=== PATIENT | male | born 1970 | race Caucasian/White ===

== ENCOUNTER 2021-10-02 11:13 | Inpatient (IN) | payer OTHER ==
[2021-10-02] MEDS ORDERED: SODIUM CHLORIDE 0.9% 500 ML INFUS.BAG IV ONE (11:44)
[2021-10-02] MEDS ORDERED: ONDANSETRON 4 MG/2 ML VIAL IVPB ONE (11:50)
[2021-10-02] MEDS ORDERED: LACTATED RINGERS SOLUTION 1000 ML INFUS.BAG IV ONE ×2 (11:59→15:06)
[2021-10-02] MEDS ORDERED: ONDANSETRON 4 MG/2 ML VIAL ONE (12:08)
[2021-10-02] MEDS ORDERED: ACETAMINOPHEN 1000 MG/100 ML BAG IVPB ONE (12:09)
[2021-10-02 12:16] LABS: VENOUS BASE EXCESS -2.1 mmol/L (-2-2); VENOUS PCO2 47.3 mmHg (38-52); VENOUS PH 7.327 (7.310-7.410)
[2021-10-02 12:18] LABS: BASO % 2.2 % (0-2.0); EOS % 0.9 % (0-4.5); HEMATOCRIT 38.2 % (35.4-49); HEMOGLOBIN 13.3 GM/dL (11.7-16.9); LYMPH % 13.8 % (8-40); MCH 30.9 pg (25.7-33.7); MCHC 34.7 g/dl (32.0-35.9); MEAN CELL VOLUME 88.9 fl (80-96); MEAN PLT VOLUME 10.1 fl (7.5-11.1); MONO % 3.7 % (3.8-10.2); NEUT % 79.4 % (42.8-82.8); PLATELET COUNT 213 10^3/uL (134-434); RBC 4.29 M/mm3 (4.00-5.60); RDW 13.4 % (11.9-15.9); WHITE BLOOD COUNT 6.5 K/mm3 (4.0-10.0)
[2021-10-02 12:23] LABS: EPI CELLS 1 /uL (0-25.1); HYALINE CASTS 0 /uL (0-3.1); PH,URINE 5.5 (5.0-8.0); URINE APPEARANCE CLEAR; URINE BACTERIA 9 /uL (0-1359); URINE BILIRUBIN NEGATIVE (NEGATIVE); URINE COLOR YELLOW; URINE GLUCOSE (UA) 3+ (NEGATIVE); URINE KETONE 1+ (NEGATIVE); URINE LEUK ESTERASE NEGATIVE (NEGATIVE); URINE NITRITE NEGATIVE (NEGATIVE); URINE PROTEIN 1+ (NEGATIVE); URINE RBC 5 /uL (0-23.9); URINE UROBILINOGEN 0.2 mg/dL (0.2-1.0); URINE WBC 1 /uL (0-25.8)
[2021-10-02] MEDS ORDERED: ACETAMINOPHEN INJECTION 100 ML IVPB ONE (12:24)
[2021-10-02 12:25] LABS: INR 1.07 (0.83-1.09); PROTHROMBIN TIME (PATIENT) 12.3 SEC (9.7-13.0)
[2021-10-02 12:28] LABS: ACTIVATED PTT 29.2 SECONDS (25.2-36.5)
[2021-10-02 12:36] LABS: CHLORIDE 90 mmol/L (98-107); SODIUM 129 mmol/L (136-145)
[2021-10-02 12:37] LABS: ALBUMIN 3.5 g/dl (3.4-5.0); ANION GAP 14 MMOL/L (8-16); CALCIUM 9.1 mg/dL (8.5-10.1); CO2 25 mmol/L (21-32)
[2021-10-02 12:38] LABS: BLOOD UREA NITROGEN 37.9 mg/dL (7-18); LIPASE 570 U/L (73-393)
[2021-10-02 12:40] LABS: CREATININE 1.6 mg/dL (0.55-1.3); SGOT/AST 23 U/L (15-37)
[2021-10-02 12:41] LABS: BILIRUBIN,TOTAL 0.5 mg/dL (0.2-1); SGPT/ALT 39 U/L (13-61)
[2021-10-02 12:42] LABS: TOT PROT 6.8 g/dl (6.4-8.2)
[2021-10-02 12:43] LABS: ALK PHOS 126 U/L (45-117)
[2021-10-02 15:04] LABS: CHLORIDE 95 mmol/L (98-107); SODIUM 131 mmol/L (136-145)
[2021-10-02 15:08] LABS: ANION GAP 12 MMOL/L (8-16); BLOOD UREA NITROGEN 32.9 mg/dL (7-18); CALCIUM 8.2 mg/dL (8.5-10.1); CO2 23 mmol/L (21-32)
[2021-10-02 15:11] LABS: GLUCOSE,RANDOM 811 mg/dL (74-106)
[2021-10-02 15:11] LABS: CREATININE 1.3 mg/dL (0.55-1.3); TRIGLYCERIDES 367 mg/dL (0-150)
[2021-10-02] MEDS ORDERED: INSULIN REGULAR HUMAN 100 UNITS/ML *VIAL SQ ONE (15:16)
[2021-10-02 15:17] LABS: GLUCOSE,RANDOM 630 mg/dL (74-106)
[2021-10-02 15:47] LABS: N-TERMINAL BNP 313.91 pg/ml (5-125)
[2021-10-02] MEDS ORDERED: amLODIPine BESYLATE 5 MG TABLET (FP) PO ONE ×2 (15:57→18:35)
[2021-10-02] MEDS ORDERED: amLODIPine BESYLATE 5 MG TABLET (FP) ONE ×2 (15:57→18:43)
[2021-10-02] MEDS ORDERED: CALCIUM GLUCONATE 10% - 1,000 MG/10 ML VIAL IVPUSH ONE (16:59)
[2021-10-02] MEDS ORDERED: CALCIUM GLUCONATE 10% - 1,000 MG/10 ML VIAL ONE (17:22)
[2021-10-02] MEDS: INSULIN SLIDING SCALE (NOVOLOG) 1 VIAL SQ SCH (17:37)
[2021-10-02] MEDS ORDERED: INSULIN REGULAR HUMAN 100 UNITS/ML *VIAL IVPUSH ONE (18:04)
[2021-10-02 19:10] LABS: CALCIUM 9.1 mg/dL (8.5-10.1)
[2021-10-02 19:11] LABS: BLOOD UREA NITROGEN 27.2 mg/dL (7-18)
[2021-10-02 19:14] LABS: CREATININE 1.2 mg/dL (0.55-1.3)
[2021-10-02] MEDS ORDERED: ONDANSETRON 4 MG/2 ML VIAL IVPUSH PRN (19:52)
[2021-10-02] MEDS: HEPARIN NA (PORCINE) 5,000 UNITS/ML 1ML VIAL SQ SCH (21:12)
[2021-10-02] MEDS ORDERED: HEPARIN NA (PORCINE) 5,000 UNITS/ML 1ML VIAL ONE (21:13)
[2021-10-02 21:30] LABS: BLOOD UREA NITROGEN 29.7 mg/dL (7-18); CALCIUM 8.6 mg/dL (8.5-10.1)
[2021-10-02 21:33] LABS: CREATININE 1.4 mg/dL (0.55-1.3)
[2021-10-03] MEDS: INSULIN SLIDING SCALE (NOVOLOG) 1 VIAL SQ SCH ×6 (00:10→23:49)
[2021-10-03 01:43] VITALS: BMI 22.2
[2021-10-03] MEDS: HEPARIN NA (PORCINE) 5,000 UNITS/ML 1ML VIAL SQ SCH ×3 (06:02→21:46)
[2021-10-03 07:30] LABS: BASO % 2.1 % (0-2.0); EOS % 4.5 % (0-4.5); HEMATOCRIT 29.6 % (35.4-49); HEMOGLOBIN 10.6 GM/dL (11.7-16.9); LYMPH % 37.1 % (8-40); MCH 30.8 pg (25.7-33.7); MEAN CELL VOLUME 85.5 fl (80-96); MEAN PLT VOLUME 10.3 fl (7.5-11.1); MONO % 5.1 % (3.8-10.2); NEUT % 51.2 % (42.8-82.8); PLATELET COUNT 180 10^3/uL (134-434); RBC 3.46 M/mm3 (4.00-5.60); RDW 13.5 % (11.9-15.9); WHITE BLOOD COUNT 5.7 K/mm3 (4.0-10.0)
[2021-10-03 07:39] LABS: CALCIUM 8.1 mg/dL (8.5-10.1)
[2021-10-03 07:42] LABS: BLOOD UREA NITROGEN 24.2 mg/dL (7-18); MAGNESIUM 2.1 mg/dL (1.8-2.4)
[2021-10-03 07:44] LABS: PHOSPHOROUS 2.6 mg/dL (2.5-4.9)
[2021-10-03 07:46] LABS: BILIRUBIN,TOTAL 0.7 mg/dL (0.2-1)
[2021-10-03 08:01] LABS: ALBUMIN 2.5 g/dl (3.4-5.0)
[2021-10-03] MEDS ORDERED: DEXTROSE 50%-WATER 25 GM/50 ML DISP.SYRIN IVPUSH PRN (08:08)
[2021-10-03] MEDS: INSULIN (LEVEMIR) 100 UNITS/ML UNITS SQ SCH ×2 (09:30→21:46)
[2021-10-03] MEDS: NIFEdipine E.R. 30 MG TABLET PO SCH (09:30)
[2021-10-03] MEDS ORDERED: NIFEdipine E.R. 30 MG TABLET PO SCH ×2 (10:00→18:24)
[2021-10-03] MEDS ORDERED: ATORVASTATIN CA 80 MG TABLET (FP) PO SCH (22:00)
[2021-10-04] MEDS: HEPARIN NA (PORCINE) 5,000 UNITS/ML 1ML VIAL SQ SCH (06:03)
[2021-10-04] MEDS: INSULIN SLIDING SCALE (NOVOLOG) 1 VIAL SQ SCH ×2 (06:06→11:58)
[2021-10-04 07:16] LABS: HEMATOCRIT 29.5 % (35.4-49); HEMOGLOBIN 10.6 GM/dL (11.7-16.9); MCHC 35.9 g/dl (32.0-35.9); MEAN CELL VOLUME 86.6 fl (80-96); MEAN PLT VOLUME 9.9 fl (7.5-11.1); PLATELET COUNT 163 10^3/uL (134-434); RBC 3.41 M/mm3 (4.00-5.60); RDW 13.2 % (11.9-15.9)
[2021-10-04] MEDS ORDERED: INSULIN (LEVEMIR) 100 UNITS/ML UNITS SQ SCH ×2 (07:32→22:00)
[2021-10-04 07:33] LABS: BLOOD UREA NITROGEN 24.4 mg/dL (7-18); CALCIUM 8.1 mg/dL (8.5-10.1)
[2021-10-04] MEDS ORDERED: INSULIN (LEVEMIR) 100 UNITS/ML UNITS SQ ONE (07:54)
[2021-10-04] MEDS: Insulin (LOG) Aspart 100 UNITS/ML VIAL SQ SCH ×2 (08:04→11:57)
[2021-10-04] MEDS: NIFEdipine E.R. 30 MG TABLET PO SCH (09:08)
[2021-10-04] MEDS ORDERED: ENOXAPARIN NA (PORCINE) 40 MG/0.4 ML DISP.SYRIN SQ SCH ×2 (10:00→14:00)
[2021-10-04] MEDS ORDERED: ASPIRIN 81 MG CHEWABLE TABLETS PO SCH (10:00)
[2021-10-04 15:50] VITALS: BP 138/67; PULSE 74; TEMP 98.2
== END 2021-10-04 18:01 | disposition home or self-care (01) | DRG 420 ==
LOC: JER 11:13 → JERBED 13:59 → J4W 10-03 00:41
PROVIDERS: ADMIT Internal Medicine; ATTEND Internal Medicine
DX: E11.65 Type 2 diabetes mellitus with hyperglycemia (principal); I25.10 Atherosclerotic heart disease of native coronary artery without angina pectoris; E78.5 Hyperlipidemia, unspecified; E87.5 Hyperkalemia; E86.0 Dehydration; Z95.1 Presence of aortocoronary bypass graft; N17.9 Acute kidney failure, unspecified; E11.22 Type 2 diabetes mellitus with diabetic chronic kidney disease; I12.9 Hypertensive chronic kidney disease with stage 1 through stage 4 chronic kidney disease, or unspecified chronic kidney disease; N18.9 Chronic kidney disease, unspecified
CPT/HCPCS: 36415; 80048; 80053; 80061; 81003; 82010; 82803; 82962; 83036; 83690; 83735; 83880; 84100; 84478; 84484; 85025; 85027; 85610; 85730; 87086; 93005; 93010; 99285-25; C9803-CS; J1644; U0003; U0005

== ENCOUNTER 2022-10-27 13:43 | Inpatient (IN) | payer OTHER ==
[2022-10-27] MEDS ORDERED: CEPHALEXIN MONOHYDRATE 500 MG CAPSULE (UD) PO ONE (15:04)
[2022-10-27 15:15] LABS: BASO % 1.5 % (0-2.0); EOS % 3.8 % (0-4.5); HEMATOCRIT 33.2 % (35.4-49); HEMOGLOBIN 11.9 GM/dL (11.7-16.9); LYMPH % 22.4 % (8-40); MCHC 35.9 g/dl (32.0-35.9); MEAN CELL VOLUME 86.3 fl (80-96); MEAN PLT VOLUME 9.7 fl (7.5-11.1); MONO % 5.8 % (3.8-10.2); NEUT % 66.5 % (42.8-82.8); PLATELET COUNT 219 10^3/uL (134-434); RBC 3.85 M/mm3 (4.00-5.60); RDW 12.9 % (11.9-15.9); WHITE BLOOD COUNT 5.9 K/mm3 (4.0-10.0)
[2022-10-27] MEDS ORDERED: CEPHALEXIN MONOHYDRATE 500 MG CAPSULE (UD) ONE (15:18)
[2022-10-27 16:09] LABS: ERYTHROCYTE SEDIMENTATION RATE 58 mm/hr (0-20)
[2022-10-27 16:12] LABS: CHLORIDE 108 mmol/L (98-107); POTASSIUM 5.3 mmol/L (3.5-5.1); SODIUM 137 mmol/L (136-145)
[2022-10-27 16:14] LABS: ALBUMIN 2.9 g/dl (3.4-5.0); ANION GAP 3 MMOL/L (8-16); BLOOD UREA NITROGEN 23.6 mg/dL (7-18); CALCIUM 8.9 mg/dL (8.5-10.1); CO2 26 mmol/L (21-32)
[2022-10-27] MEDS ORDERED: PIPERACILLIN/TAZOB 3.375 GM 3.375 GM in DEXTROSE 5%-WATER - 50 ML IVPB ONE (16:15)
[2022-10-27 16:18] LABS: CREATININE 1.8 mg/dL (0.55-1.3); SGOT/AST 18 U/L (15-37); SGPT/ALT 31 U/L (13-61)
[2022-10-27 16:19] LABS: BILIRUBIN,TOTAL 0.2 mg/dL (0.2-1); TOT PROT 6.4 g/dl (6.4-8.2)
[2022-10-27 16:20] LABS: ALK PHOS 175 U/L (45-117)
[2022-10-27 16:22] LABS: GLUCOSE,RANDOM 436 mg/dL (74-106)
[2022-10-27] MEDS ORDERED: PIPERACILLIN/TAZOB 3.375 GM 3.375 GM/50 ML BAG IVPB ONE (16:26)
[2022-10-27] MEDS ORDERED: SODIUM CHLORIDE 0.9% 500 ML INFUS.BAG IV ONE (16:27)
[2022-10-27] MEDS ORDERED: LISINOPRIL 20 MG TABLET PO ONE (17:16)
[2022-10-27] MEDS ORDERED: LISINOPRIL 20 MG TABLET ONE (17:37)
[2022-10-27] MEDS ORDERED: NIFEdipine E.R 60 MG TABLET PO ONE (20:22)
[2022-10-27] MEDS: NIFEdipine E.R 60 MG TABLET PO SCH (20:23)
[2022-10-27 21:00] VITALS: BMI 23.6
[2022-10-27] MEDS: ATORVASTATIN CA 80 MG TABLET (FP) PO SCH ×2 (21:43→21:45)
[2022-10-28] MEDS ORDERED: GABAPENTIN 100 MG CAPSULE PO ONE (00:15)
[2022-10-28] MEDS: PIPERACILLIN/TAZOB 3.375 GM 3.375 GM in DEXTROSE 5%-WATER - 50 ML IVPB SCH ×3 (00:24→16:44)
[2022-10-28] MEDS ORDERED: PIPERACILLIN/TAZOB 3.375 GM 3.375 GM in DEXTROSE 5%-WATER - 50 ML IVPB SCH (02:00)
[2022-10-28] MEDS: INSULIN (LEVEMIR) 100 UNITS/ML UNITS SQ SCH (06:01)
[2022-10-28] MEDS: INSULIN SLIDING SCALE (NOVOLOG) 1 VIAL SQ SCH ×3 (06:03→16:47)
[2022-10-28] MEDS: LISINOPRIL 20 MG TABLET PO SCH (09:16)
[2022-10-28] MEDS: ASPIRIN 81 MG CHEWABLE TABLETS PO SCH (09:16)
[2022-10-28] MEDS: NIFEdipine E.R 60 MG TABLET PO SCH (09:16)
[2022-10-28 09:32] LABS: BASO % 1.9 % (0-2.0); EOS % 5.1 % (0-4.5); HEMATOCRIT 33.1 % (35.4-49); HEMOGLOBIN 12.1 GM/dL (11.7-16.9); LYMPH % 19.4 % (8-40); MCH 31.5 pg (25.7-33.7); MCHC 36.7 g/dl (32.0-35.9); MEAN CELL VOLUME 85.8 fl (80-96); MEAN PLT VOLUME 9.9 fl (7.5-11.1); MONO % 5.6 % (3.8-10.2); PLATELET COUNT 246 10^3/uL (134-434); RBC 3.86 M/mm3 (4.00-5.60); RDW 13.3 % (11.9-15.9); WHITE BLOOD COUNT 6.9 K/mm3 (4.0-10.0)
[2022-10-28 10:07] LABS: POTASSIUM 4.2 mmol/L (3.5-5.1)
[2022-10-28 10:17] LABS: BLOOD UREA NITROGEN 19.4 mg/dL (7-18); CALCIUM 8.4 mg/dL (8.5-10.1)
[2022-10-28 10:19] LABS: ALBUMIN 2.7 g/dl (3.4-5.0)
[2022-10-28 10:20] LABS: CREATININE 1.3 mg/dL (0.55-1.3)
[2022-10-28 10:22] LABS: BILIRUBIN,TOTAL 0.4 mg/dL (0.2-1); TOT PROT 6.1 g/dl (6.4-8.2)
[2022-10-28] MEDS: LACTATED RINGERS SOLUTION 1,000 ML/1,000 ML INFUS.BAG IV SCH (11:46)
[2022-10-28] MEDS: ATORVASTATIN CA 80 MG TABLET (FP) PO SCH (22:24)
[2022-10-29] MEDS: LACTATED RINGERS SOLUTION 1,000 ML/1,000 ML INFUS.BAG IV SCH ×3 (03:12→23:16)
[2022-10-29] MEDS: INSULIN (LEVEMIR) 100 UNITS/ML UNITS SQ SCH (06:11)
[2022-10-29] MEDS: INSULIN SLIDING SCALE (NOVOLOG) 1 VIAL SQ SCH ×3 (06:12→16:49)
[2022-10-29] MEDS ORDERED: INSULIN (LEVEMIR) 100 UNITS/ML UNITS SQ ONE (06:47)
[2022-10-29] MEDS: LISINOPRIL 20 MG TABLET PO SCH (10:16)
[2022-10-29] MEDS: NIFEdipine E.R 60 MG TABLET PO SCH (10:17)
[2022-10-29] MEDS: ASPIRIN 81 MG CHEWABLE TABLETS PO SCH (10:17)
[2022-10-29] MEDS: PIPERACILLIN/TAZOB 3.375 GM 3.375 GM in DEXTROSE 5%-WATER - 50 ML IVPB SCH (17:55)
[2022-10-29] MEDS: ATORVASTATIN CA 80 MG TABLET (FP) PO SCH (21:25)
[2022-10-30] MEDS: PIPERACILLIN/TAZOB 3.375 GM 3.375 GM in DEXTROSE 5%-WATER - 50 ML IVPB SCH ×3 (02:18→17:45)
[2022-10-30] MEDS: INSULIN (LEVEMIR) 100 UNITS/ML UNITS SQ SCH (06:22)
[2022-10-30] MEDS: INSULIN SLIDING SCALE (NOVOLOG) 1 VIAL SQ SCH ×3 (06:22→16:26)
[2022-10-30 08:50] LABS: POTASSIUM 4.3 mmol/L (3.5-5.1)
[2022-10-30 08:53] LABS: ALBUMIN 2.6 g/dl (3.4-5.0); BLOOD UREA NITROGEN 25.2 mg/dL (7-18)
[2022-10-30 08:56] LABS: CREATININE 1.4 mg/dL (0.55-1.3)
[2022-10-30 08:58] LABS: BILIRUBIN,TOTAL 0.6 mg/dL (0.2-1); TOT PROT 6.1 g/dl (6.4-8.2)
[2022-10-30] MEDS: ASPIRIN 81 MG CHEWABLE TABLETS PO SCH (09:11)
[2022-10-30] MEDS: NIFEdipine E.R 60 MG TABLET PO SCH (09:11)
[2022-10-30] MEDS: LISINOPRIL 20 MG TABLET PO SCH (09:11)
[2022-10-30] MEDS ORDERED: INSULIN (NOVOLOG) ASPART 100 UNITS/ML 10ML VIAL ONE (11:19)
[2022-10-30] MEDS: LACTATED RINGERS SOLUTION 1,000 ML/1,000 ML INFUS.BAG IV SCH (11:25)
[2022-10-30] MEDS: ATORVASTATIN CA 80 MG TABLET (FP) PO SCH (22:30)
[2022-10-31] MEDS: PIPERACILLIN/TAZOB 3.375 GM 3.375 GM in DEXTROSE 5%-WATER - 50 ML IVPB SCH ×3 (02:13→17:11)
[2022-10-31] MEDS: INSULIN SLIDING SCALE (NOVOLOG) 1 VIAL SQ SCH ×3 (06:21→17:09)
[2022-10-31] MEDS: INSULIN (LEVEMIR) 100 UNITS/ML UNITS SQ SCH (06:21)
[2022-10-31] MEDS: LACTATED RINGERS SOLUTION 1,000 ML/1,000 ML INFUS.BAG IV SCH (07:32)
[2022-10-31] MEDS: NIFEdipine E.R 60 MG TABLET PO SCH (09:40)
[2022-10-31] MEDS: ASPIRIN 81 MG CHEWABLE TABLETS PO SCH (09:40)
[2022-10-31] MEDS: LISINOPRIL 20 MG TABLET PO SCH (09:40)
[2022-10-31] MEDS ORDERED: INSULIN (NOVOLOG) ASPART 100 UNITS/ML 10ML VIAL ONE (11:54)
[2022-10-31 15:10] LABS: HEMATOCRIT 32.8 % (35.4-49); HEMOGLOBIN 11.6 GM/dL (11.7-16.9); MCH 30.5 pg (25.7-33.7); MCHC 35.2 g/dl (32.0-35.9); MEAN CELL VOLUME 86.7 fl (80-96); MEAN PLT VOLUME 8.9 fl (7.5-11.1); PLATELET COUNT 260 10^3/uL (134-434); RBC 3.79 M/mm3 (4.00-5.60); RDW 13.4 % (11.9-15.9)
[2022-10-31 15:37] LABS: POTASSIUM 4.4 mmol/L (3.5-5.1)
[2022-10-31 15:40] LABS: CALCIUM 8.9 mg/dL (8.5-10.1)
[2022-10-31 15:41] LABS: BLOOD UREA NITROGEN 28.2 mg/dL (7-18)
[2022-10-31 15:43] LABS: CREATININE 1.3 mg/dL (0.55-1.3)
[2022-10-31] MEDS: ATORVASTATIN CA 80 MG TABLET (FP) PO SCH (21:22)
[2022-11-01] MEDS ORDERED: INSULIN (LEVEMIR) 100 UNITS/ML UNITS SQ SCH (00:26)
[2022-11-01] MEDS ORDERED: INSULIN SLIDING SCALE (NOVOLOG) 1 VIAL SQ SCH (00:27)
[2022-11-01] MEDS: PIPERACILLIN/TAZOB 3.375 GM 3.375 GM in DEXTROSE 5%-WATER - 50 ML IVPB SCH ×2 (01:05→09:21)
[2022-11-01 08:30] VITALS: BP 166/87; PULSE 72; RESP 16; TEMP 98.2
[2022-11-01] MEDS: NIFEdipine E.R 60 MG TABLET PO SCH (09:18)
[2022-11-01] MEDS: LISINOPRIL 20 MG TABLET PO SCH (09:18)
[2022-11-01] MEDS: LACTATED RINGERS SOLUTION 1,000 ML/1,000 ML INFUS.BAG IV SCH (09:21)
[2022-11-01] MEDS ORDERED: DEXTROSE 5%-WATER - 1,000 ML IV SCH (09:45)
[2022-11-01] MEDS: ASPIRIN 81 MG CHEWABLE TABLETS PO SCH (09:48)
== END 2022-11-01 10:30 | disposition left against medical advice (07) | DRG 380 ==
LOC: JER 13:43 → JERBED 16:57 → J6S 20:39 → OBSVTOIN 10-31 13:43
PROVIDERS: ADMIT Family Medicine; ATTEND Family Medicine
DX: E11.621 Type 2 diabetes mellitus with foot ulcer (principal); N17.9 Acute kidney failure, unspecified; E11.65 Type 2 diabetes mellitus with hyperglycemia; E11.51 Type 2 diabetes mellitus with diabetic peripheral angiopathy without gangrene; E11.40 Type 2 diabetes mellitus with diabetic neuropathy, unspecified; E11.319 Type 2 diabetes mellitus with unspecified diabetic retinopathy without macular edema; E11.22 Type 2 diabetes mellitus with diabetic chronic kidney disease; L97.529 Non-pressure chronic ulcer of other part of left foot with unspecified severity; I12.9 Hypertensive chronic kidney disease with stage 1 through stage 4 chronic kidney disease, or unspecified chronic kidney disease; N18.9 Chronic kidney disease, unspecified; I25.10 Atherosclerotic heart disease of native coronary artery without angina pectoris; L03.032 Cellulitis of left toe; E78.5 Hyperlipidemia, unspecified; Z95.1 Presence of aortocoronary bypass graft; Z53.29 Procedure and treatment not carried out because of patient's decision for other reasons; Z79.4 Long term (current) use of insulin
CPT/HCPCS: 36415; 73610-TC-LT-FY; 73630-TC-LT; 73718-TC-LT; 80048; 80053; 82010; 82570; 82962; 83036; 84156; 84484; 84550; 85025; 85027; 85651; 86140; 87635; 93005; 93010; 93926-TC; 99285-25; G0378